=== PATIENT | male | born 1980 | race Caucasian/White ===

== ENCOUNTER 2019-05-28 06:17 | Emergency (ER) | payer SELFPAY ==
[2019-05-28] MEDS ORDERED: Ondansetron PF 4 MG/2 ML Vial ONE ×2 (06:48→08:32)
[2019-05-28 06:54] LABS: #Lymphocytes 1.2 thou/uL (1.20-3.40); #Monocytes 0.7 thou/uL (0.11-0.59); #Neutrophils 12.8 thou/uL (1.40-6.50); %Basophils 0.2 % (0.0-1.0); %Eosinophils 0.3 % (0.0-10.0); %Lymphocytes 7.9 % (21.0-51.0); %Monocytes 4.5 % (0.0-10.0); %Neutrophils 87.1 % (42.0-75.0); Hemoglobin 16.9 g/dL (14.0-18.0); Mean Corpuscular HGB CONC 32.7 g/dL (32.0-36.0); Mean Corpuscular Volume 85.5 fL (78.0-98.0); Mean Platelet Volume 8.9 fL (7.4-10.4); Platelet Count 255 thou/uL (130-400); RBC Distribution Width 12.4 % (11.5-14.5); Red Blood Cell (RBC) Count 6.04 mill/uL (4.70-6.10); White Blood Cell (WBC) Count 14.7 thou/uL (4.8-10.8)
[2019-05-28 06:55] LABS: Bilirubin Negative (Negative); Blood, Urine 1+ (Negative); Clarity Clear (Clear); Glucose, Urine (Dipstick) Normal (Negative); Leukocyte Negative Leu/uL (Negative); Mucous/LPF 3+ LPF (<2+); Nitrite Negative (Negative); Protein, Urine (Dipstick) 20 mg/dL (Neg-Trace); RBC/HPF 0-3 HPF (0-3); Squamous Epithelial 0-3 HPF (0-3); Urobilinogen Normal mg/dL (Less than 2); WBC/HPF 0-3 HPF (0-3)
[2019-05-28 07:00] LABS: Bacteria/HPF 1+ HPF (None Seen)
[2019-05-28 07:10] LABS: ALT (SGPT) 21 U/L (8-55); AST (SGOT) 15 U/L (5-34); Albumin 4.8 g/dL (3.5-5.0); Alkaline Phosphatase 86 U/L (40-150); Anion Gap 15 mmol/L (10-20); BUN (Urea Nitrogen) 13 mg/dL (8.9-20.6); Bilirubin, Total 0.5 mg/dL (0.2-1.2); Calc. Creatinine Clearance 0 mL/min (70-130); Calcium 9.9 mg/dL (7.8-10.44); Carbon Dioxide 23 mmol/L (22-29); Chloride 104 mmol/L (98-107); Estimated GFR-MDRD 86; Globulin 3.2 g/dL (2.4-3.5); Glucose 127 mg/dL (70-105); Lipase 19 U/L (8-78); Potassium 3.9 mmol/L (3.5-5.1); Sodium 138 mmol/L (136-145)
[2019-05-28] MEDS ORDERED: Thiamine HCl 200 MG/2 ML VIAL SLOW IVP SCH (08:00)
--- NOTE | 2019-05-28 08:13 | CT ---
ABDOMEN AND PELVIS CT WITH CONTRAST: INDICATION: Epigastric pain with nausea and vomiting. COMPARISON: No prior comparison imaging. FINDINGS: The imaged lung bases are clear. Solid abdominal organs are unremarkable. There is no bowel obstruc tion. No pneumoperitoneum or ascites. Abdominal aorta is normal in caliber. There is mild contrast seen within the imaged distal esophagus which could relate to dysmotility or reflux. Correlate clin ically. There are metallic clips adjacent the gastric wall indicating prior surgery. There is a sli ghtly altered morphology of the stomach in this regard. Recommend correlation with the surgical hist ory. Normal caliber appendix is visualized within the right lower quadrant. Evaluation of the oss eous structures reveals no acute process. Urinary bladder is decompressed limiting evaluation. IMPRESSION: No acute abnormalities are identified. POS: [facility]
[2019-05-28] MEDS ORDERED: Ketorolac Tromethamine 30 MG/ML VIAL ONE (08:57)
[2019-05-28] MEDS ORDERED: Metoclopramide HCl 10 MG/2 ML VIAL ONE (08:57)
[2019-05-28] MEDS ORDERED: diphenhydrAMINE 50 MG/ML VIAL ONE (08:57)
[2019-05-28] MEDS ORDERED: Iopamidol 370 76% 100 ML VIAL ONE (16:19)
[2019-05-28] MEDS ORDERED: Iopamidol 370 76% 50 ML VIAL FS ONE (16:19)
== END 2019-05-28 11:44 | disposition home or self-care (01) ==
LOC: ERS 06:17
DX: R11.2 Nausea with vomiting, unspecified (principal); R10.13 Epigastric pain
CPT/HCPCS: 74177; 80053; 81003; 81015; 83690; 85025; 96365; 96375; 96376; J1200; J1885; J2405; J2765; J3411; Q9967

== ENCOUNTER 2020-05-23 17:04 | Emergency (ER) | payer SELFPAY ==
[~2020-05-23 17:04] MED LIST: Iopamidol-370 76% 500 ML 1 ML ONE
[2020-05-23] MEDS ORDERED: Ondansetron PF 4 MG/2 ML Vial ONE ×2 (17:31→19:21)
[2020-05-23] MEDS ORDERED: Morphine 4 MG/ML VIAL ONE ×2 (17:31→19:21)
[2020-05-23 17:37] LABS: #Basophils 0.1 thou/uL (0.0-0.2); #Lymphocytes 0.7 thou/uL (1.20-3.40); #Monocytes 0.6 thou/uL (0.11-0.59); #Neutrophils 15.8 thou/uL (1.40-6.50); %Basophils 0.3 % (0.0-1.0); %Eosinophils 0.1 % (0.0-10.0); %Lymphocytes 3.9 % (21.0-51.0); %Monocytes 3.3 % (0.0-10.0); %Neutrophils 92.4 % (42.0-75.0); Hemoglobin 17.5 g/dL (14.0-18.0); Mean Corpuscular HGB CONC 33.6 g/dL (32.0-36.0); Mean Corpuscular Hemoglobin 28.6 pg (27.0-31.0); Mean Corpuscular Volume 85.3 fL (78.0-98.0); Mean Platelet Volume 9.3 fL (7.4-10.4); Platelet Count 265 thou/uL (130-400); RBC Distribution Width 12.3 % (11.5-14.5); White Blood Cell (WBC) Count 17.1 thou/uL (4.8-10.8)
[2020-05-23 17:56] LABS: ALT (SGPT) 15 U/L (8-55); AST (SGOT) 12 U/L (5-34); Albumin 4.9 g/dL (3.5-5.0); Alkaline Phosphatase 83 U/L (40-110); Anion Gap 14 mmol/L (10-20); BUN (Urea Nitrogen) 11 mg/dL (8.9-20.6); Bilirubin, Total 0.6 mg/dL (0.2-1.2); Calc. Creatinine Clearance 0 mL/min (70-130); Calcium 10.4 mg/dL (7.8-10.44); Carbon Dioxide 26 mmol/L (22-29); Chloride 103 mmol/L (98-107); Estimated GFR-MDRD 80; Globulin 3.3 g/dL (2.4-3.5); Glucose 123 mg/dL (70-105); Lipase 20 U/L (8-78); Potassium 4.1 mmol/L (3.5-5.1); Protein, Total 8.2 g/dL (6.0-8.3); Sodium 139 mmol/L (136-145)
[2020-05-23] MEDS ORDERED: Piperacillin/Tazobactam 3.375 GM VIAL ONE (18:29)
--- NOTE | 2020-05-23 18:49 | CT ---
CT ABDOMEN AND PELVIS WITH IV CONTRAST: 05/23/20 HISTORY: Epigastric abdominal pain. COMPARISON: 05/28/19. FINDINGS: The lung bases are clear. Postop changes of gastric sleeve surgery are again seen. No calcified galls tones are noted. The liver, spleen, pancreas, adrenal glands and kidneys are normal. No free air, oscar e fluid or lymphadenopathy is seen in the abdomen or pelvis. The small bowel loops are not abnormally dilated. A normal appearing appendix is present. No acute osseous abnormalities are seen. IMPRESSION: No evidence of acute process. POS: [facility]
[2020-05-23 19:50] LABS: Bacteria/HPF None Seen HPF (None Seen); Bilirubin Negative (Negative); Blood, Urine 2+ (Negative); Clarity Extra Turbid (Clear); Glucose, Urine (Dipstick) Normal (Negative); Ketone, Urine 10 mg/dL (Negative); Leukocyte Negative Leu/uL (Negative); Mucous/LPF 2+ LPF (<2+); Nitrite Negative (Negative); Protein, Urine (Dipstick) 30 mg/dL (Neg-Trace); Specific Gravity, Urine 1.033 (1.002-1.036); Squamous Epithelial None Seen HPF (0-3); Urobilinogen Normal mg/dL (Less than 2); WBC/HPF None Seen HPF (0-3); pH, Urine 5.5 (5.0-9.0)
== END 2020-05-23 20:53 | disposition home or self-care (01) ==
LOC: ERS 17:04
DX: R10.13 Epigastric pain (principal); R10.814 Left lower quadrant abdominal tenderness; R10.812 Left upper quadrant abdominal tenderness; R10.811 Right upper quadrant abdominal tenderness; R10.813 Right lower quadrant abdominal tenderness
CPT/HCPCS: 36415; 74177; 80053; 81003; 81015; 83605; 83690; 84484; 85025; 87040; 96361; 96365; 96375; 96376; J2270; J2405; J2543; Q9967